=== PATIENT | female | born 1940 | race Caucasian/White ===

== ENCOUNTER 2024-11-13 15:52 | Emergency (ER) | payer MEDICARE, OTHER ==
[2024-11-13] MEDS ORDERED: Oxymetazoline HCl 0.05% (30 ML BOT) ONE (16:15)
[2024-11-13] MEDS ORDERED: Silver Nitrate Application 1 EACH ONE ×2 (16:19→18:22)
== END 2024-11-13 17:30 | disposition home or self-care (01) ==
LOC: MADERS 15:52
DX: R04.0 Epistaxis (principal); J33.9 Nasal polyp, unspecified; I10 Essential (primary) hypertension; E78.00 Pure hypercholesterolemia, unspecified; Z79.899 Other long term (current) drug therapy
CPT/HCPCS: 99283